=== PATIENT | male | born 1990 | race Hispanic/Latino ===

== ENCOUNTER 2020-04-22 21:52 | Emergency (ER) | payer SELFPAY ==
[2020-04-22] MEDS ORDERED: Morphine 4 MG/ML VIAL ONE (22:12)
[2020-04-22] MEDS ORDERED: Ondansetron PF 4 MG/2 ML Vial ONE (22:16)
--- NOTE | 2020-04-22 22:28 | RAD ---
2 views left tibia/fibula: 04/22/2020 COMPARISON: None available HISTORY: Injury, pain FINDINGS: There is a comminuted fracture of the medial malleolus. No evidence for dislocation. Marino mckeon right ankle imaging advised. IMPRESSION: Acute fracture of the medial malleolus.
--- NOTE | 2020-04-22 22:29 | RAD ---
Left ankle 3 views: 04/22/2020 COMPARISON: None HISTORY: Injury, trauma, pain FINDINGS: Medial and lateral soft tissue swelling. Comminuted fracture of left medial malleolus with a superior oblique component in an inferior transverse component. No evidence for dislocation. No additional fracture. IMPRESSION: Comminuted left medial malleolus fracture.
[2020-04-22 22:34] LABS: #Eosinphils 0.1 thou/uL (0.0-0.7); #Lymphocytes 1.7 thou/uL (1.20-3.40); #Monocytes 0.6 thou/uL (0.11-0.59); %Basophils 0.3 % (0.0-1.0); %Eosinophils 0.6 % (0.0-10.0); %Lymphocytes 12.5 % (21.0-51.0); %Monocytes 4.1 % (0.0-10.0); %Neutrophils 82.4 % (42.0-75.0); Hemoglobin 16.6 g/dL (14.0-18.0); Mean Corpuscular HGB CONC 35.5 g/dL (32.0-36.0); Mean Corpuscular Hemoglobin 33.1 pg (27.0-31.0); Mean Corpuscular Volume 93.2 fL (78.0-98.0); Mean Platelet Volume 8.1 fL (7.4-10.4); Platelet Count 212 thou/uL (130-400); RBC Distribution Width 11.6 % (11.5-14.5); Red Blood Cell (RBC) Count 5.03 mill/uL (4.70-6.10); White Blood Cell (WBC) Count 13.3 thou/uL (4.8-10.8)
[2020-04-22 22:53] LABS: ALT (SGPT) 168 U/L (8-55); AST (SGOT) 133 U/L (5-34); Albumin 4.5 g/dL (3.5-5.0); Alkaline Phosphatase 85 U/L (40-110); Anion Gap 20 mmol/L (10-20); BUN (Urea Nitrogen) 16 mg/dL (8.9-20.6); Bilirubin, Total 0.5 mg/dL (0.2-1.2); Calc. Creatinine Clearance 0 mL/min (70-130); Calcium 9.4 mg/dL (7.8-10.44); Carbon Dioxide 25 mmol/L (22-29); Chloride 99 mmol/L (98-107); Globulin 3.6 g/dL (2.4-3.5); Glucose 146 mg/dL (70-105); Potassium 3.9 mmol/L (3.5-5.1); Protein, Total 8.1 g/dL (6.0-8.3); Sodium 140 mmol/L (136-145)
--- NOTE | 2020-04-22 23:34 | CT ---
CT of the chest, abdomen, pelvis, thoracic spine, and lumbar spine: 04/22/2020 COMPARISON: None HISTORY: Injury, trauma, pain TECHNIQUE: Axial CT imaging at 5 mm intervals from thoracic inlet through pubic symphysis with IV con trast. Coronal and sagittal reformatted imaging obtained FINDINGS: Vascular structures of the chest, abdomen, and pelvis unremarkable. No lymphadenopathy with in the chest, abdomen, or pelvis. No pleural, pericardial, or mediastinal fluid. No pneumothorax on either side. No acute pulmonary parenchymal abnormality noted on either side. Subtle nondisplaced lateral fifth rib fracture. Nondisplaced lateral right sixth and seventh rib frac ture as well. No left-sided rib fracture. No free intraperitoneal air or fluid. The liver is hypodense suggesting steatosis. Gallbladder, splee n, pancreas, adrenal glands, and kidneys unremarkable. Limited assessment of the bowel appears unremarkable. Osseous structures of the pelvis demonstrate no acute findings. No acute fracture or dislocation is seen involving the thoracic or lumbar spine. No evidence for a fr acture of the sternum or the manubrium. Bilateral L4 pars defects are present. IMPRESSION: Right-sided rib fractures. No evidence for pneumothorax. No acute findings within the abd omen/pelvis.
== END 2020-04-23 00:35 | disposition home or self-care (01) ==
LOC: ERS 21:52
DX: S82.52XA Displaced fracture of medial malleolus of left tibia, initial encounter for closed fracture (principal); S22.41XA Multiple fractures of ribs, right side, initial encounter for closed fracture; S90.02XA Contusion of left ankle, initial encounter; S30.811A Abrasion of abdominal wall, initial encounter; V48.4XXA Person boarding or alighting a car injured in noncollision transport accident, initial encounter
CPT/HCPCS: 71260; 74177; 80053; 85025; 94799; 96374; 96375; J2270; J2405

== ENCOUNTER 2020-05-25 06:56 | Outpatient (CLI) | payer SELFPAY ==
[2020-05-27 08:41] LABS: SARS-CoV-2 PCR by NAA Not Detected (NotDetected)
== END 2020-05-25 06:57 | disposition home or self-care (01) ==
LOC: LABBT 06:56
PROVIDERS: ATTEND Orthopaedic Surgery
DX: Z01.812 Encounter for preprocedural laboratory examination (principal); S82.52XA Displaced fracture of medial malleolus of left tibia, initial encounter for closed fracture; Z20.822 Contact with and (suspected) exposure to COVID-19
CPT/HCPCS: 87635; U0003; U0005

== ENCOUNTER 2020-05-28 06:16 | Day surgery (SDC) | payer OTHER ==
[2020-05-27 10:34] VITALS: BMI 25.0
[2020-05-28] MEDS ORDERED: Midazolam HCl 2 mg/2 ml Vial ONE (06:40)
[2020-05-28] MEDS ORDERED: Fentanyl 100 MCG/2 ML VIAL ONE ×3 (06:40→09:09)
[2020-05-28] MEDS ORDERED: HYDROmorphone 0.5 MG/0.5 ML SYRINGE ONE (07:05)
[2020-05-28] MEDS ORDERED: Dexmedetomidine 200 MCG/2 ML VIAL ONE (07:06)
--- NOTE | 2020-05-28 08:33 | RAD ---
Intraoperative imaging of the left ankle-3 views: 05/28/2020 COMPARISON: 05/18/2020 HISTORY: Fracture status post ORIF FINDINGS: The obliquely oriented fracture of the medial malleolus noted on the prior examination has been surgically treated with 2 screws. Anatomic alignment at the fracture site is noted. No evidence for dislocation. No additional fracture is apparent IMPRESSION: ORIF as above.
[2020-05-28] MEDS ORDERED: Labetalol HCl 100 MG/20 ML VIAL ONE (09:01)
--- NOTE | 2020-05-28 09:35 | OP ---
DATE OF PROCEDURE: 05/28/2020 PROCEDURE: Open reduction and internal fixation of left medial malleolus fracture. PREOPERATIVE DIAGNOSIS: Displaced left medial malleolar fracture. POSTOPERATIVE DIAGNOSIS: Displaced left medial malleolar fracture. COMPLICATIONS: None. ESTIMATED BLOOD LOSS: Minimal. IMPLANTS: Two 4.0 partially-threaded screws from [employer] were utilized. INDICATIONS: Rakesh is a 29-year-old male who fractured his left ankle. He has a displaced medial malleolus fracture. He has been indicated for open reduction and internal fixation to restore the anatomic alignment of the ankle mortise and promote healing. Risks have been reviewed in detail. He has elected to proceed with the operation. DESCRIPTION OF PROCEDURE: Mr. Cameron was identified in the preoperative holding area. His correct extremity was marked. He was carried to the operating room. He was positioned supine. General anesthesia was induced. A multidisciplinary time-out was performed. The left lower extremity was prepped and draped in sterile fashion. We began the procedure with a medial malleolar approach. We dissected down through the subcutaneous tissues to the fascia and the bony level. We exposed the underlying fracture. There was mobility at the fracture. We cleared the bony edges of scar tissue. We then freed up the fracture with an elevator and at this point, we used a reduction clamp to close down the gap in the fracture and the mortise surface. We guided this with x-ray. Once we had a good reduction, we applied two 4.0 screws after drilling and measuring appropriate length. Next, a final image was taken confirming hardware placement and reduction. There was no widening on stress view. We irrigated and closed. We then placed a sterile dressing and the patient's boot. Job ID: [id number]
[2020-05-28] MEDS ORDERED: Lidocaine 1% PF 5 ML VIAL ONE (09:56)
[2020-05-28] MEDS ORDERED: Dexamethasone 20 MG/5 ML VIAL ONE (09:56)
[2020-05-28] MEDS ORDERED: Bupivacaine HCl 0.5%/Epinephrine 1:200,000/PF 30 ml Vial ONE (09:56)
[2020-05-28] MEDS ORDERED: Ondansetron PF 4 MG/2 ML Vial ONE (09:56)
[2020-05-28] MEDS ORDERED: PROPOFOL 200 MG/20 ML VIAL ONE (09:56)
[2020-05-28] MEDS ORDERED: Ketorolac Tromethamine 30 MG/ML VIAL ONE (09:56)
== END 2020-05-28 11:30 | disposition home or self-care (01) ==
LOC: SDC 06:16
PROVIDERS: ATTEND Orthopaedic Surgery
PROC: 0QSH04Z Reposition Left Tibia with Internal Fixation Device, Open Approach (ICD-10-PCS; principal; 2020-05-28)
DX: S82.52XA Displaced fracture of medial malleolus of left tibia, initial encounter for closed fracture (principal); X58.XXXA Exposure to other specified factors, initial encounter; Y93.89 Activity, other specified
CPT/HCPCS: 76000; C1713; J0690; J1100; J1170; J1885; J2250; J2405; J2704; J3010